=== PATIENT | female | born 1990 | race Caucasian/White ===

== ENCOUNTER 2018-07-08 23:14 | Emergency (ER) | payer MEDICAID ==
[~2018-07-08] VITALS: Ht 170.2 cm; Wt 97.7 kg
[~2018-07-08 23:14] MED LIST: AMOXICILLIN 50500 MG PO; BIRTH CONTROL PILLS; LORTAB 5/500 501 TAB PO; NO HOME MEDICATIONS; PRENATAL1 TA1 PO; SPRINTEC 35 MCG1 TAB PO; ZOFRAN4 MG PO
[2018-07-08 23:18] VITALS: TEMP 97.9
[2018-07-08] MEDS ORDERED: PRENATAL LOW IR1 TA1 PO (23:20)
[2018-07-09] MEDS ORDERED: FLAGYL500 MG PO (00:50)
[2018-07-09 01:08] VITALS: BP 123/83; PULSE 93
[2018-07-09] MEDS ORDERED: ZITHROMAX500 M2 PO (02:07)
== END 2018-07-09 01:09 | disposition home or self-care (01) ==
LOC: COL.ER 23:14
DX: O20.0 Threatened abortion (principal); O23.591 Infection of other part of genital tract in pregnancy, first trimester; O99.331 Smoking (tobacco) complicating pregnancy, first trimester; B96.89 Other specified bacterial agents as the cause of diseases classified elsewhere; F17.210 Nicotine dependence, cigarettes, uncomplicated; Z3A.01 Less than 8 weeks gestation of pregnancy; Z90.49 Acquired absence of other specified parts of digestive tract

== ENCOUNTER 2019-03-24 19:59 | Emergency (ER) | payer MEDICAID ==
[~2019-03-24] VITALS: Ht 170.2 cm; Wt 95.5 kg
[~2019-03-24 19:59] MED LIST changes: +FLAGYL500 MG PO; +PRENATAL LOW IR1 TA1 PO; +ZITHROMAX500 M2 PO
[2019-03-24 20:06] VITALS: BP 118/70; TEMP 98.7
[2019-03-24] MEDS ORDERED: PROFE180 MG PO (20:11)
--- NOTE | 2019-03-24 20:23 | NUR ---
PT IN ER FOR RIGHT SIDED STABBING PAIN THAT WORSEN WHEN SHE VOIDS. PT STATES SHE IS 25WKS BUT MEASURING 26WKS. PT REPORTS DUE DATE 06-28-2019. [facility] [place] [employer]. PT REPORTS THIS IS HER 5TH . PT DENIES CONTRACTIONS, LOF OR VAGINAL BLEEDING. REPORTS GOOD MOVEMENT. NO CONTRACTIONS PER TOCO.
[2019-03-24 20:43] LABS: COLLECTION METHOD CLEAN CATCH
[2019-03-24 21:00] LABS: MUCOUS Present /lpf; PH 5 (5-8); URINE APPEARANCE Cloudy; URINE BACTERIA Rare /hpf; URINE BILIRUBIN Negative (NEGATIVE); URINE BLOOD Negative (NEGATIVE); URINE COLOR Yellow; URINE GLUCOSE Negative (NEGATIVE); URINE KETONE Negative (NEGATIVE); URINE LEUKOCYTE ESTERASE Negative (NEGATIVE); URINE NITRATE Negative (NEGATIVE); URINE PROTEIN(semi-quant) Negative (NEGATIVE); URINE RBC 0-2 /hpf; URINE UROBILINOGEN Negative (NEGATIVE)
[2019-03-24 22:03] VITALS: PULSE 93
== END 2019-03-24 22:03 | disposition home or self-care (01) ==
LOC: COL.ER 19:59
PROVIDERS: Emergency Medicine
DX: O26.893 Other specified pregnancy related conditions, third trimester (principal); R10.2 Pelvic and perineal pain; O99.353 Diseases of the nervous system complicating pregnancy, third trimester; G43.909 Migraine, unspecified, not intractable, without status migrainosus; Z90.49 Acquired absence of other specified parts of digestive tract; Z3A.27 27 weeks gestation of pregnancy

== ENCOUNTER 2019-05-21 14:13 | Outpatient (CLI) | payer MEDICAID ==
[~2019-05-21] VITALS: Ht 170.2 cm; Wt 97.7 kg
[~2019-05-21 14:13] MED LIST changes: +PROFE180 MG PO
--- NOTE | 2019-05-21 14:20 | NUR ---
Patient ambulatory to [facility] with sister and FHR/TOCO monitor placed. Patient states she lost her mucus plug and having some bloody show. Denies regular contractions or leaking of fluid. Patient states she called her physician and they were not concerned so wanted to get checked. Plan of care discussed. SVE-[id number]/-3 Dr Oswald called and notified and orders to discharge home 1500: Patient off monitors and discharge instructions gone over and papers signed. 1510: Patient ambulates off unit.
[2019-05-21 15:00] VITALS: BP 124/73; PULSE 71; TEMP 98.3
== END 2019-05-21 15:10 | disposition home or self-care (01) ==
LOC: LDRO 14:13 → LDR 14:44 → LDRO 15:10
DX: O26.893 Other specified pregnancy related conditions, third trimester (principal); Z3A.35 35 weeks gestation of pregnancy
CPT/HCPCS: OP